=== PATIENT | female | born 1990 | race Two or more races ===

== ENCOUNTER 2017-10-31 09:44 | Emergency (ER) | payer OTHER ==
[2017-10-31 09:58] VITALS: BMI 28.3
--- NOTE | 2017-10-31 11:27 | HP ---
Past Medical History - Primary Care Physician PCP:: Bill Gonzalez - Admission Chief Complaint: 27yo P1 with at EGA 19 1/7 weeks with c/o cramping x 4 days and vaginal spotting x 2 days. History of Present Illness: No LOF, no pain, no fever, no chills, no or GI issues, no recent trauma or intercourse, denies drug use. 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: Alzheimer's, CVA, Dementia, Migraine, Multiple Sclerosis, Peripheral Neuropathy, Parkinson's, Seizure, Syncope, TIA, Vertigo, Other Cardiovascular: No: AFIB, Aneurysm, Aortic Insufficiency, Aortic Stenosis, CAD, CHF, Deep Vein Thrombosis, HTN, Hyperlipdemia, LA, Mitral Insufficiency, Mitral Stenosis, Murmur, Pulmonary Hypertension, Other Pulmonary: No: Asthma, Bronchitis, Cancer, COPD, O2 Dependent, Pneumonia, Previously Intubated, Pulmonary Embolus, Pulmonary Fibrosis, Sleep Apnea, Other Gastrointestinal: No: Ascites, Cancer, Constipation, Crohn's Disease, Diverticulitis, Diverticulosis, Esophageal Varices, Gastritis, GERD, GI Bleed, Hemorrhoids, Hiatal Hernia, Inflamatory Bowel Disease, Irritable Bowel Disease, Pancreatitis, Peptic Ulcer Disease, Ulcerative Colitis, Other Hepatobiliary: No: Cirrhosis, Cholelithiasis, Cholecystitis, Choledocholithiasis , Hepatitis A, Hepatitis B, Hepatitis C, Other Renal/: No: Renal Failure, Renal Inusuff, BPH, Cancer, Hematuria, Hemodialysis , Neurogenic Bladder, Renal Calculi, UTI, Other Reproductive: No: Ectopic , Endometriosis, Fibroids, PID, Polycystic Ovary Syndrome, Postmenopausal, Other ...: 3 ...Para: 1 ...Term: 1 ...Induced : 1 ... Weeks Gestation by Dates: ...EDC by Sono: 03/22/18 Heme/Onc: No: Anemia, B12 Deficiency, Bleeding Disorder, Cancer, Current Chemotherapy, Current Radiation Therapy, Hemochromatosis, Hypercoaguable State, Myeloproliferative Synd, Sickle Cell Disease, Sickle Cell Trait, Thrombocytopenia, Other Infectious Disease: No: AIDS, C-Diff, Herpes Zoster, HIV, MRSA, STD's, Tuberculosis, VREF, Other Musculoskeletal: No: Bursitis, Chronic low back pain, Hemiparesis, Hemiplegia, Osteoarthritis, Paraplegia, Other Rheumatology: No: Fibromyalgia, Gout, Lupus, Rheumatoid Arthritis, Sarcoidosis, Vasculitis, Other ENT: No: Allergic Rhinitis, Sinusitis, Other Endocrine: No: [place]'s Disease, Jigna's Disease, Diabetes Insipidus, Diabetes Mellitus, Hyperparathyroidism, Hyperthyroidism, Hypothyroidism, Osteopenia, SIADH, Other Dermatology: Yes: Eczema - Past Surgical History Past Surgical History: Yes: Cholecystectomy Hx Myomectomy: No Hx Transabdominal Cerclage: No Additional Surgical History: Meniscus repair - Smoking History Smoking history: Former smoker Have you smoked in the past 12 months: No Aproximately how many cigarettes per day: 2 - Alcohol/Substance Use Hx Alcohol Use: Yes (SOCIAL) History of Substance Use: reports: None - Social History Usual Living Arrangement: Yes: With Child ADL: Independent 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 History of Recent Travel: No Home Medications - Allergies Allergies/Adverse Reactions: Allergies Allergy/AdvReac Type Severity Reaction Status Date / Time No Known Allergies Allergy Verified 10/31/17 11:06 - Home Medications Home Medications: Ambulatory Orders Vit/Iron Fumarate/FA [ Tablet] 1 tab PO DAILY 10/31/17 Family Disease History - Family Disease History Family Disease History: Diabetes: Father, Respiratory: Mother (COPD) Review of Systems - Review of Systems Constitutional: reports: No Symptoms Eyes: reports: No Symptoms HENT: reports: No Symptoms Neck: reports: No Symptoms Cardiovascular: reports: No Symptoms Respiratory: reports: No Symptoms Gastrointestinal: reports: No Symptoms Genitourinary: reports: No Symptoms Breasts: reports: No Symptoms Reported Musculoskeletal: reports: No Symptoms Integumentary: reports: No Symptoms Neurological: reports: No Symptoms Endocrine: reports: No Symptoms Hematology/Lymphatic: reports: No Symptoms Psychiatric: reports: No Symptoms Pain Intensity: 0 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 - Maternity Vital Signs: Vital Signs Temperature 98.2 F 10/31/17 09:53 Pulse Rate 70 10/31/17 09:53 Respiratory Rate 19 10/31/17 09:53 Blood Pressure 113/49 10/31/17 09:53 O2 Sat by Pulse Oximetry (%) 99 10/31/17 09:53 Constitutional: Yes: Well Nourished, No Distress, Calm Eyes: Yes: WNL, Conjunctiva Clear HENT: Yes: WNL, Atraumatic, Normocephalic Neck: Yes: WNL, Supple, Trachea Midline Cardiovascular: Yes: WNL, Regular Rate and Rhythm Lungs: Clear to auscultation, Normal air movement - Abdominal Exam/OB Fundal Height: 19 Number of Fetuses: Single Heart Rate (range): 140 Heart Rate Location: Midline - Vaginal Exam/OB Vaginal Bleediing: Yes, Old Blood (No active bleeding, trace of old/brown blood , no abnormal discharge, no pooling) Speculum Exam: Yes Dilatation (cm): 0 Effacement (%): 0 Amniotic Membrane Status: Intact Nitrazine Test: Negative - 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 Musculoskeletal: Yes: WNL Extremities: Yes: WNL Edema: No Integumentary: Yes: WNL Deep Tendon Reflex Grade: Normal +2 ...Motor Strength: WNL Psychiatric: Yes: WNL, Alert, Oriented Hemorrhage Risk Assessment - Risk Factors Medium Risk Factors: Yes: None High Risk Factors: Yes: None Risk Score: 1 Risk Level: Medium Risk Assessment/Plan 27yo P1 with at EGA 19w1d presents for evaluation of threatened Ab. Pt w/o active bleeding. The rest of exam is normal. Plan: labs OB and transvaginal OB sono
[2017-10-31 11:50] LABS: BASOPHIL 0.5 % (0-2.0); MCH 30.2 pg (25.7-33.7); MEAN CELL VOLUME 88.8 fl (80-96); MEAN PLT VOLUME 8.2 fl (7.5-11.1); NEUTROPHILS 74.2 % (42.8-82.8); PLATELET COUNT 271 K/MM3 (134-434); RDW 12.8 % (11.6-15.6)
[2017-10-31 12:05] VITALS: BP 109/51; PULSE 68; TEMP 98
[2017-10-31 12:07] LABS: INR 0.96 (0.82-1.09); PROTHROMBIN TIME (PATIENT) 10.8 SEC (9.98-11.88)
[2017-10-31 12:15] LABS: ALBUMIN 2.7 g/dl (3.4-5.0); ANION GAP 7 (8-16); CALCIUM 8.9 mg/dL (8.5-10.1); CO2 27 mmol/L (21-32); CREATININE 0.3 mg/dL (0.55-1.02); GLUCOSE,RANDOM 82 mg/dL (74-106); SGOT/AST 20 U/L (15-37); SGPT/ALT 25 U/L (12-78)
[2017-10-31 12:17] LABS: ALK PHOS 74 U/L (45-117); BILIRUBIN,TOTAL 0.3 mg/dL (0.2-1.0); TOT PROT 5.9 g/dl (6.4-8.2)
== END 2017-10-31 13:05 | disposition home or self-care (01) ==
LOC: JER 09:44
DX: O26.892 Other specified pregnancy related conditions, second trimester (principal); O20.0 Threatened abortion; Z3A.19 19 weeks gestation of pregnancy
CPT/HCPCS: 36415; 80053; 85025; 85610; 85730; 86850; 86900; 86901; 99281-25

== ENCOUNTER 2018-03-01 21:45 | Inpatient (IN) | payer OTHER ==
[2018-03-01] MEDS ORDERED: ceFAZolin SODIUM 1 GM VIAL ONE (22:05)
[2018-03-01] MEDS ORDERED: morphine SULFATE/Preservative Free 0.5 MG/ML (1cc Syringe) ONE (22:05)
[2018-03-01] MEDS ORDERED: SUCCINYLCHOLINE CHLORIDE 200 MG/10 ML VIAL ONE (22:06)
[2018-03-01] MEDS ORDERED: BUPIVACAINE 0.75% IN DEXTROSE/PF 2ML AMPULE NR ONE (22:07)
[2018-03-01] MEDS ORDERED: METOCLOPRAMIDE HCL INJECTION 10 MG/2 ML VIAL ONE (22:15)
[2018-03-01 22:19] LABS: BASO % 0.4 % (0-2.0); EOS % 0.6 % (0-4.5); MCH 29.5 pg (25.7-33.7); MCHC 33.5 g/dl (32.0-36.0); MEAN CELL VOLUME 88.3 fl (80-96); MEAN PLT VOLUME 9.3 fl (7.5-11.1); MONO % 5.9 % (3.8-10.2); NEUT % 77.1 % (42.8-82.8); PLATELET COUNT 293 K/MM3 (134-434); RBC 3.74 M/mm3 (3.60-5.2); RDW 13.9 % (11.6-15.6); WHITE BLOOD COUNT 13.4 K/mm3 (4.0-10.0)
--- NOTE | 2018-03-01 22:21 | HP ---
Past Medical History - Admission History of Present Illness: 27 yo @ 36 3/7 wk by 9 wk ultrasound, EDC 03/26/2018 complicated by: 1. Posterior marginal placenta previa - most recent ultrasound 02/16/2018 (34 wks ) Placenta 1.3 cm from cervical os EFW 2352 32% 2. infant, dated by 9 wk ultrasound 3. GBS unknown Patient reports with chief complaint of bleeding and subsequent leakage of bloody fluid at approximately 2130. She reports contractions and reports movement. History Source: Patient - Past Medical History Cardiovascular: No: HTN Gastrointestinal: No: Ascites ...: 3 ...Para: 1 ...Term: 1 ...EDC by Sono: 03/16/18 Heme/Onc: No: Anemia Dermatology: Yes: Eczema - Past Surgical History Past Surgical History: Yes: Cholecystectomy Hx Myomectomy: No Hx Transabdominal Cerclage: No Additional Surgical History: Meniscus repair - Smoking History Smoking history: Former smoker Have you smoked in the past 12 months: No Aproximately how many cigarettes per day: 2 - Alcohol/Substance Use Hx Alcohol Use: Yes (SOCIAL) History of Substance Use: reports: None - Social History ADL: Independent 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 History of Recent Travel: No Home Medications - Allergies Allergies/Adverse Reactions: Allergies Allergy/AdvReac Type Severity Reaction Status Date / Time No Known Allergies Allergy Verified 10/31/17 11:06 - Home Medications Home Medications: Ambulatory Orders Vit/Iron Fum/Folic AC [ Tablet] 1 tab PO DAILY 10/31/17 Family Disease History - Family Disease History Family Disease History: Diabetes: Father, Respiratory: Mother (COPD) Review of Systems - Review of Systems Constitutional: reports: No Symptoms Neck: reports: No Symptoms Cardiovascular: reports: No Symptoms Respiratory: reports: No Symptoms Gastrointestinal: reports: No Symptoms Genitourinary: reports: No Symptoms Musculoskeletal: reports: No Symptoms Integumentary: reports: No Symptoms Neurological: reports: No Symptoms Endocrine: reports: No Symptoms Hematology/Lymphatic: reports: No Symptoms Psychiatric: reports: No Symptoms 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 - Maternity Constitutional: Yes: Well Nourished, No Distress, Calm Neck: Yes: Supple Cardiovascular: Yes: Regular Rate and Rhythm Lungs: Clear to auscultation - Abdominal Exam/OB Number of Fetuses: Single Presentation: Vertex Contractions: Yes Heart Rate (range): 130 Category: I Accelerations: Non-Uniform Decelerations: None - Vaginal Exam/OB Dilatation (cm): 2 Effacement (%): 50 Amniotic Membrane Status: Ruptured Station: -3 - 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 Psychiatric: Yes: Alert, Oriented - Labs Lab Results: PNL: A positive, antibody negative; RPR NR; HBSag negative; Hep C negative; Rubella immune; HIV negative; Parvo non immune; Varicella immune; CF/SMA/ Fragile X neg; GBS unknown; reassuring sequential screen; GCT WNL Hemorrhage Risk Assessment - Risk Factors Medium Risk Factors: Yes: None High Risk Factors: Yes: None Risk Score: 1 Risk Level: Medium Risk Assessment/Plan 27 yo @ 36 3/7 wks, PROM, marginal placenta previa 1. Admit to L&D, routine labs collected and sent 2. Consents reviewed and signed. Discussed recent ultrasound finding of marginal placenta previa, placental edge 1.3 cm. Discussed that placental edge is > 1 cm from cervical edge, patient may labor and monitor for bleeding. Discussed risk of delivery including but not limited to infection, bleeding, damage to surrounding organs such as bowel and bladder, small risk if injury to . Reviewed planning of future pregnancies, risks of abnormal placentation. Patient adamant that she does not want to labor and desires delivery. 3. Category I FHT 4. Unknown GBS 5. Will proceed to OR
[2018-03-01] MEDS ORDERED: OXYTOCIN 20 UNITS in 0.9% NS 20 UNIT/1,000 ML INFUS.BAG IV ONE (22:25)
[2018-03-01] MEDS ORDERED: ePHEDrine SULFATE 50 MG/1 ML AMPULE ONE (22:29)
[2018-03-01 22:36] VITALS: BMI 34.2
[2018-03-01] MEDS ORDERED: ELECTROLYTE-148 SOLN 500 ML IV ONE (22:45)
[2018-03-01] MEDS ORDERED: ELECTROLYTE-148 SOLN 1,000 ML IV SCH (22:45)
[2018-03-01 22:46] LABS: ANION GAP 10 (8-16); BLOOD UREA NITROGEN 11 mg/dL (7-18); CHLORIDE 104 mmol/L (98-107); CO2 23 mmol/L (21-32); CREATININE 0.3 mg/dL (0.55-1.02); GLUCOSE,RANDOM 81 mg/dL (74-106); POTASSIUM 4.3 mmol/L (3.5-5.1); SODIUM 137 mmol/L (136-145)
[2018-03-01 23:00] LABS: ACTIVATED PTT 25.3 SECONDS (26.9-34.4); INR 0.89 (0.82-1.09); PROTHROMBIN TIME (PATIENT) 10.1 SEC (9.98-11.88)
[2018-03-01] MEDS ORDERED: CITRIC ACID/SODIUM CITRATE 30 ML UNIT-DOSE CUP PO ONE (23:00)
[2018-03-01] MEDS: OXYTOCIN 20 UNITS in 0.9% NS 20 UNIT/1,000 ML INFUS.BAG IV SCH (23:10)
[2018-03-01 23:42] LABS: ARTERIAL BLOOD GAS PCO2 59.6 mmHg (35-45); ARTERIAL BLOOD GAS pH 7.28 (7.35-7.45)
[2018-03-01 23:43] LABS: ARTERIAL BLOOD GAS BASE EXCESS -0.5 meq/l (-2-2)
[2018-03-01 23:45] LABS: ARTERIAL BLD GAS O2 SATURATION 23.5 % (90-98.9); ARTERIAL BLOOD GAS PO2 14.7 mmHg (80-100)
[2018-03-01 23:46] LABS: VENOUS PC02 51.5 mmHg (38-52); VENOUS PH 7.32 (7.32-7.42); VENOUS PO2 21.6 mmHg (28-48)
[2018-03-01] MEDS ORDERED: ONDANSETRON 4 MG/2 ML VIAL IVPUSH PRN (23:53)
[2018-03-01] MEDS ORDERED: morphine SULFATE/Preservative Free 0.5 MG/ML (1cc Syringe) SPIN ONE (23:53)
--- NOTE | 2018-03-01 23:56 | PN ---
Delivery - Delivery Section: Primary Type of Anesthesia: Spinal EBL (cc): 600 Delivery, Single - Condition of Gender: Male Weight: 5 lb 11 oz Position: Right, OT - 1 Minute Total Score: 9 5 Minutes Total Score: 9 - Feeding Plan Initial Plan: Elected not to breastfeed exclusively throughout hospitalization Remarks - Remarks Remarks: Findings: Male infant; ROT position; 9,9; wt 5-11; 18.25 inches; normal tubes and ovaries bilaterally Surgeon: Reji Assist: BEBE Vega Anesthesia: Spinal, Dr. Villatoro Dictation: [id number]
[2018-03-01] MEDS ORDERED: WITCH HAZEL 50% (TUCKS) 40 PAD/JAR PAD TP PRN (23:59)
[2018-03-01] MEDS ORDERED: BENZOCAINE 28 GM HEMORRHOIDAL OINTMENT TP PRN (23:59)
[2018-03-01] MEDS ORDERED: METHYLERGONOVINE MALEATE 0.2 MG/1 ML AMP IM PRN (23:59)
[2018-03-01] MEDS ORDERED: BENZOCAINE 20% 57 GM BOTTLE TP PRN (23:59)
[2018-03-02] MEDS: OXYTOCIN 20 UNITS in 0.9% NS 20 UNIT/1,000 ML INFUS.BAG IV SCH ×2 (01:07→10:10)
[2018-03-02] MEDS ORDERED: OXYTOCIN 20 UNITS in 0.9% NS 20 UNIT/1,000 ML INFUS.BAG IV ONE (01:10)
[2018-03-02] MEDS ORDERED: METOCLOPRAMIDE HCL INJECTION 10 MG/2 ML VIAL IVPUSH ONE (01:10)
[2018-03-02] MEDS: IBUPROFEN 800 MG/8 ML IJ IVPB PRN ×2 (01:50→14:03)
--- NOTE | 2018-03-02 06:44 | OP ---
DATE OF OPERATION: 03/01/2018 PREOPERATIVE DIAGNOSIS: Intrauterine 36.3 weeks, marginal placental previa, bleeding. POSTOPERATIVE DIAGNOSIS: Intrauterine 36.3 weeks, marginal placental previa, bleeding. SURGEON: Dasha Mendoza MD HARDWOOD FALLER: BEBE Vega ANESTHESIA: Spinal with Dr. Villatoro. FINDINGS: Male infant in ROT position; Apgars 9, 9; weight 5 pounds, 11 ounces, 18.25 inches, normal tubes and ovaries bilaterally. INDICATIONS: Patient is a 27-year-old 3, para 1 with a history of marginal placenta previa who was found to have pre-term premature rupture of membranes, bleeding at home, and found to have blood-tinged fluid upon delivery and yahir. She opted for surgical delivery, declined offer for vaginal delivery. She was counseled regarding risk, benefits, alternatives, and complications of procedure including infection, bleeding requiring transfusion, damage to underlying organs such as bowel, bladder, ureters and injury to infant. She expressed understanding and was brought to the operating room. DESCRIPTION OF PROCEDURE: When anesthesia was found to be adequate, patient was prepped and draped in normal sterile fashion, placed in dorsal supine position with a leftward tilt. An approximately 11-cm skin incision was made with the knife and carried to the underlying rectus muscle using the Bovie electrocautery. The fascia was nicked in the midline, extended laterally using the Christian scissors. Attention was brought to the inferior portion, which was all tented up using Carmen clamps and dissected off the underlying rectus muscles using the Christian scissors. Attention was brought to the superior portion, where in similar fashion, it was tented up using Carmen clamps, and dissected off the underlying rectus muscles using the Christian scissors. The rectus muscles were in the midline bluntly, and the peritoneum was entered sharply. The vesicouterine peritoneum was identified, entered sharply, and the bladder flap was created digitally. Hysterotomy was performed and extended laterally using the bandaged scissors. Infants head was brought to the hysterotomy site and delivered followed by shoulders and body. Nuchal cord noted x1 and reduced. Infant was delivered. Mouth and nose were bulb suctioned. Blood and cord gases were collected and sent. Infant was handed off to awaiting NICU staff. The Placenta was manually extracted. The uterus was cleared of all clot and debris. The uterus was closed using 0 Biosyn in a running layer, 2nd layer was an imbricating layer. The vesicouterine peritoneum was reapproximated using 0 Biosyn in a running fashion. Gutters were cleared of all clot and debris. Bilateral tubes and ovaries were noted to be normal appearing. Peritoneum was closed using 2-0 Biosyn in a running fashion. The fascia was closed using 0 Vicryl in a running fashion. Subcutaneous fat was closed using 0 Vicryl in a running fashion. Skin was reapproximated using 3-0 Vicryl. The patient tolerated the procedure well. Estimated blood loss was 600 mL. Patient was brought to the recovery room in stable condition. Js [id number] MTDD
--- NOTE | 2018-03-02 08:05 | PN ---
Post Progress Note - Subjective Subjective: Patient without acute complaints. Tolerating clears, without nausea or vomiting No voiding, abraham in place draining clear fluid No ambulation or flatus yet. Denies fevers or chills. Pain well controlled. Post Day: 1 Type of Delivery: Primary C/S Vital Signs: Vital Signs Temperature 98.4 F 03/02/18 06:00 Pulse Rate 71 03/02/18 06:00 Respiratory Rate 18 03/02/18 07:00 Blood Pressure 135/73 03/02/18 06:00 O2 Sat by Pulse Oximetry (%) 100 03/02/18 01:00 Breast Exam: Yes: Soft Uterus: Yes: Fundus Firm Incision: Yes: Dressing dry and intact Abdomen/GI: Yes: Abdomen soft, Abdominal Distention (mild soft), Passing flatus , Tolerating PO. No: Tender Lochia: Yes: Serosa Lochia, amount: Moderate Extremities: Yes: Edema (trace) Perineum: Yes: Intact - Labs Labs: CBC WBC 13.4 K/mm3 (4.0-10.0) H 03/01/18 22:05 RBC 3.74 M/mm3 (3.60-5.2) 03/01/18 22:05 Hgb 11.0 GM/dL (10.7-15.3) 03/01/18 22:05 Hct 33.0 % (32.4-45.2) 03/01/18 22:05 MCV 88.3 fl (80-96) 03/01/18 22:05 MCH 29.5 pg (25.7-33.7) 03/01/18 22:05 MCHC 33.5 g/dl (32.0-36.0) 03/01/18 22:05 RDW 13.9 % (11.6-15.6) 03/01/18 22:05 Plt Count 293 K/MM3 (134-434) 03/01/18 22:05 MPV 9.3 fl (7.5-11.1) D 03/01/18 22:05 Neutrophils % 77.1 % (42.8-82.8) 03/01/18 22:05 Lymphocytes % 16.0 % (8-40) 03/01/18 22:05 Monocytes % 5.9 % (3.8-10.2) 03/01/18 22:05 Eosinophils % 0.6 % (0-4.5) 03/01/18 22:05 Basophils % 0.4 % (0-2.0) 03/01/18 22:05 Assessment/Plan 27 yo POD # 1 s/p primary CD at 36+ wks for previa, bleeding, PPROM, afebrile, vital signs stable doing well 1. Continue routine postoperative care. 2. Follow up AM CBC 3. Rh positive status, no rhogam indicated. 4. Encourage ambulation and incentive spirometer use 5. Continue oral pain medication 6. Anticipate discharge home postoperative day #3 or #4
[2018-03-02 08:42] LABS: BASO % 0.4 % (0-2.0); EOS % 0.8 % (0-4.5); HEMATOCRIT 30.5 % (32.4-45.2); HEMOGLOBIN 10.1 GM/dL (10.7-15.3); LYMPH % 17.1 % (8-40); MCH 29.5 pg (25.7-33.7); MCHC 33.1 g/dl (32.0-36.0); MEAN PLT VOLUME 8.7 fl (7.5-11.1); NEUT % 76.7 % (42.8-82.8); PLATELET COUNT 243 K/MM3 (134-434); RBC 3.42 M/mm3 (3.60-5.2); RDW 14.2 % (11.6-15.6); WHITE BLOOD COUNT 12.5 K/mm3 (4.0-10.0)
[2018-03-02] MEDS ORDERED: TUBERCULIN PPD 5 TU/0.1ML SYRINGE (IN PATIENT USE ONLY) ID ONE (09:00)
--- NOTE | 2018-03-02 09:00 | PN ---
Progress Note, Physician Chief Complaint: POD #1 s/p csection - Current Medication List Current Medications: Active Medications Benzocaine (Americaine 20% Junior -) 1 spray TP PRN PRN PRN Reason: Pain - Topical Benzocaine (Americaine Ointment -) 1 applic TP PRN PRN PRN Reason: Pain - Topical Bisacodyl (Dulcolax Suppository -) 10 mg RC PRN PRN PRN Reason: CONSTIPATION Diphenhydramine HCl (Benadryl Injection -) 25 mg IVPUSH Q4H PRN PRN Reason: Pruritis Enoxaparin Sodium (Lovenox -) 40 mg SQ DAILY [facility] Parenteral Electrolytes (Plasma-Lyte 148 -) 1,000 mls @ 125 mls/hr IV ASDIR [facility] Oxytocin/Sodium Chloride (Normal Saline+20 Units Oxytocin -) 20 unit in 1,000 mls @ 125 mls/hr IV ASDIR [facility] Last Admin: 03/02/18 01:07 Dose: 125 mls/hr Ibuprofen (Motrin -) 600 mg PO Q4H PRN PRN Reason: PAIN LEVEL 1 - 3 Ibuprofen (Caldolor Injection -) 800 mg IVPB Q8H PRN PRN Reason: PAIN LEVEL 4 - 6 Last Admin: 03/02/18 01:50 Dose: 800 mg Methylergonovine Maleate (Methergine Injection -) 0.2 mg IM Q4H PRN PRN Reason: Excessive Bleeding (L&D) Ondansetron HCl (Zofran Injection) 4 mg IVPUSH Q4H PRN PRN Reason: NAUSEA Oxycodone HCl (Roxicodone -) 5 mg PO Q4H PRN PRN Reason: PAIN LEVEL 4 - 6 Oxycodone HCl (Roxicodone -) 10 mg PO Q4H PRN PRN Reason: PAIN LEVEL 7 - 10 Multivit/Folic Acid/Iron ( Vitamins (Sjr) -) 1 tab PO DAILY [facility] Simethicone (Mylicon -) 80 mg PO Q4H PRN PRN Reason: GAS Tuberculin PPD (Tubersol Intermediate Strength) 5 tu ID ONCE ONE Stop: 03/02/18 09:01 Witch Renetta/Glycerin (Tucks Pads -) 1 pad TP PRN PRN PRN Reason: Pain - Topical - Objective Vital Signs: Vital Signs Temperature 98.3 F 03/02/18 08:50 Pulse Rate 75 03/02/18 08:50 Respiratory Rate 20 03/02/18 08:50 Blood Pressure 124/69 03/02/18 08:50 O2 Sat by Pulse Oximetry (%) 100 03/02/18 01:00 Labs: CBC, BMP 03/02/18 07:45 03/01/18 22:05 INR, PTT INR 0.89 (0.82-1.09) 03/01/18 21:59 Assessment/Plan Doing well after spinal with duramorph, though with complaints of itchiness. She does have dephenhydramine prn ordered, so advised pt to request it should she need it. OTherwise doing well, no anesthetic issues
[2018-03-02] MEDS: ENOXAPARIN NA (PORCINE) 40 MG/0.4 ML DISP.SYRIN SQ SCH (10:01)
[2018-03-02] MEDS: PRENATAL VITAMINS W/ FOLIC ACID TABLET (FP) PO SCH (11:42)
--- NOTE | 2018-03-02 17:48 | CONSULT ---
Consultation: REQUESTING PROVIDER: CONSULT REQUEST: We have been asked to medically evaluate this patient for Lice. HISTORY OF PRESENT ILLNESS: The patient is a 27 yo f w/ PMH eczema who is POD #1 for C section. Per the patient, she has a daughter at home who is currently being treated for recurrent lice. Was called to evaluate the patient for head lice prior to her visiting her in the nursery. The patient has no complaints. Patient denies itching of the scalp or arms. REVIEW OF SYSTEMS: CONSTITUTIONAL: Absent: fever, chills, diaphoresis, generalized weakness, malaise, loss of appetite, weight change HEENT: Absent: rhinorrhea, nasal congestion, throat pain, throat swelling, difficulty swallowing, mouth swelling, ear pain, eye pain, visual changes CARDIOVASCULAR: Absent: chest pain, syncope, palpitations, irregular heart rate, lightheadedness , peripheral edema RESPIRATORY: Absent: cough, shortness of breath, dyspnea with exertion, orthopnea, wheezing, stridor, hemoptysis GASTROINTESTINAL: Absent: abdominal distension, nausea, vomiting, diarrhea, constipation, melena, hematochezia GENITOURINARY: Absent: dysuria, frequency, urgency, hesitancy, hematuria, flank pain, genital pain MUSCULOSKELETAL: Absent: myalgia, arthralgia, joint swelling, back pain, neck pain SKIN: Absent: rash, itching, pallor HEMATOLOGIC/IMMUNOLOGIC: Absent: easy bleeding, easy bruising, lymphadenopathy, frequent infections ENDOCRINE: Absent: unexplained weight gain, unexplained weight loss, heat intolerance, cold intolerance NEUROLOGIC: Absent: headache, focal weakness or paresthesias, dizziness, unsteady gait, seizure, mental status changes, bladder or bowel incontinence PSYCHIATRIC: Absent: anxiety, depression, suicidal or homicidal ideation, hallucinations. PHYSICAL EXAMINATION Vital Signs - 24 hr 03/01/18 03/01/18 03/02/18 21:58 23:59 00:15 Temperature 99.0 F 97.4 F L Pulse Rate 77 62 75 Respiratory 20 20 18 Rate Blood Pressure 153/89 105/61 125/72 O2 Sat by Pulse 98 100 Oximetry (%) 03/02/18 03/02/18 03/02/18 00:30 00:45 01:00 Temperature 97.5 F L Pulse Rate 72 72 71 Respiratory 20 18 20 Rate Blood Pressure 122/71 126/80 127/78 O2 Sat by Pulse 100 100 100 Oximetry (%) 03/02/18 03/02/18 03/02/18 01:55 02:00 03:00 Temperature 97.6 F Pulse Rate 64 Respiratory 18 18 18 Rate Blood Pressure 138/81 O2 Sat by Pulse Oximetry (%) 03/02/18 03/02/18 03/02/18 04:00 05:00 06:00 Temperature 98.4 F Pulse Rate 71 Respiratory 18 18 18 Rate Blood Pressure 135/73 O2 Sat by Pulse Oximetry (%) 03/02/18 03/02/18 03/02/18 07:00 08:00 08:50 Temperature 98.3 F Pulse Rate 75 Respiratory 18 20 20 Rate Blood Pressure 124/69 O2 Sat by Pulse Oximetry (%) 03/02/18 03/02/18 03/02/18 09:00 10:05 11:00 Temperature Pulse Rate Respiratory 20 20 20 Rate Blood Pressure O2 Sat by Pulse 98 Oximetry (%) 03/02/18 03/02/18 03/02/18 12:00 13:00 14:00 Temperature 98.4 F Pulse Rate 75 Respiratory 20 20 20 Rate Blood Pressure 151/99 O2 Sat by Pulse Oximetry (%) 03/02/18 03/02/18 03/02/18 14:36 15:00 16:00 Temperature Pulse Rate Respiratory 20 20 Rate Blood Pressure 152/80 O2 Sat by Pulse Oximetry (%) GENERAL: Awake, alert, and fully oriented, in no acute distress. HEAD: Normal with no signs of trauma. no lice, nits, excoriations or eggs were seen over careful examination of the patient's entire scalp. NECK: Normal range of motion, supple without lymphadenopathy, JVD, or masses. LUNGS: Breath sounds equal, clear to auscultation bilaterally. No wheezes, and no crackles. No accessory muscle use. HEART: Regular rate and rhythm, normal S1 and S2 without murmur, rub or gallop. ABDOMEN: Soft, mild tenderness to palpation over surgical scar site, not distended, normoactive bowel sounds. LOWER EXTREMITIES: 2+ pulses, warm, well-perfused. No calf tenderness. No peripheral edema. NEUROLOGICAL: Cranial nerves II-X intact. Normal speech. PSYCHIATRIC: Cooperative. Good eye contact. Appropriate mood and affect. SKIN: Warm, dry, normal turgor, no rashes or lesions noted. Laboratory Results - last 24 hr 03/01/18 03/01/18 03/01/18 21:59 22:05 22:05 WBC 13.4 H RBC 3.74 Hgb 11.0 Hct 33.0 MCV 88.3 MCH 29.5 MCHC 33.5 RDW 13.9 Plt Count 293 MPV 9.3 D Neutrophils % 77.1 Lymphocytes % 16.0 Monocytes % 5.9 Eosinophils % 0.6 Basophils % 0.4 PT with INR 10.10 INR 0.89 PTT (Actin FS) 25.3 L ABG pH ABG pCO2 at Pt Temp ABG pO2 at Pt Temp ABG HCO3 ABG O2 Sat (Measured) ABG O2 Content ABG Base Excess VBG pH POC VBG pCO2 POC VBG pO2 Mixed VBG HCO3 Sodium 137 Potassium 4.3 Chloride 104 Carbon Dioxide 23 Anion Gap 10 BUN 11 Creatinine 0.3 L Random Glucose 81 Calcium 9.0 RPR Titer Blood Type Antibody Screen 03/01/18 03/01/18 03/01/18 22:05 22:05 23:18 WBC RBC Hgb Hct MCV MCH MCHC RDW Plt Count MPV Neutrophils % Lymphocytes % Monocytes % Eosinophils % Basophils % PT with INR INR PTT (Actin FS) ABG pH 7.28 L ABG pCO2 at Pt Temp 59.6 H ABG pO2 at Pt Temp 14.7 L* ABG HCO3 27.3 H ABG O2 Sat (Measured) 23.5 L* ABG O2 Content 4.9 L* ABG Base Excess -0.5 VBG pH POC VBG pCO2 POC VBG pO2 Mixed VBG HCO3 Sodium Potassium Chloride Carbon Dioxide Anion Gap BUN Creatinine Random Glucose Calcium RPR Titer Nonreactive Blood Type A POSITIVE Antibody Screen Negative 03/01/18 03/02/18 23:18 07:45 WBC 12.5 H RBC 3.42 L Hgb 10.1 L Hct 30.5 L MCV 89.0 MCH 29.5 MCHC 33.1 RDW 14.2 Plt Count 243 MPV 8.7 Neutrophils % 76.7 Lymphocytes % 17.1 Monocytes % 5.0 Eosinophils % 0.8 Basophils % 0.4 PT with INR INR PTT (Actin FS) ABG pH ABG pCO2 at Pt Temp ABG pO2 at Pt Temp ABG HCO3 ABG O2 Sat (Measured) ABG O2 Content ABG Base Excess VBG pH 7.32 POC VBG pCO2 51.5 POC VBG pO2 21.6 L Mixed VBG HCO3 26.0 H Sodium Potassium Chloride Carbon Dioxide Anion Gap BUN Creatinine Random Glucose Calcium RPR Titer Blood Type Antibody Screen Active Medications Generic Name Dose Route Start Last Admin Trade Name Freq PRN Reason Stop Dose Admin Benzocaine 1 spray 03/01/18 23:59 Americaine 20% [place] - TP PRN PRN Pain - Topical Benzocaine 1 applic 03/01/18 23:59 Americaine Ointment - TP PRN PRN Pain - Topical Bisacodyl 10 mg 03/02/18 23:59 Dulcolax Suppository - RC PRN PRN CONSTIPATION Diphenhydramine HCl 25 mg 03/01/18 23:53 Benadryl Injection - IVPUSH Q4H PRN Pruritis Enoxaparin Sodium 40 mg 03/02/18 10:00 03/02/18 10:01 Lovenox - SQ 40 mg DAILY ARACELI Administration Parenteral Electrolytes 1,000 mls @ 125 mls/hr 03/01/18 22:45 Plasma-Lyte 148 - IV ASDIR ARACELI Oxytocin/Sodium Chloride 20 unit in 1,000 mls @ 125 mls/hr 03/01/18 23:45 04/14 10:10 Normal Saline+20 Units Oxytocin - IV 125 mls/hr ASDIR ARACELI Administration Ibuprofen 600 mg 03/01/18 23:59 Motrin - PO Q4H PRN PAIN LEVEL 1 - 3 Ibuprofen 800 mg 03/01/18 23:59 03/02/18 14:03 Caldolor Injection - IVPB 800 mg Q8H PRN Administration PAIN LEVEL 4 - 6 Methylergonovine Maleate 0.2 mg 03/01/18 23:59 Methergine Injection - IM Q4H PRN Excessive Bleeding (L&D) Ondansetron HCl 4 mg 03/01/18 23:53 Zofran Injection IVPUSH Q4H PRN NAUSEA Oxycodone HCl 5 mg 03/01/18 23:59 Roxicodone - PO Q4H PRN PAIN LEVEL 4 - 6 Oxycodone HCl 10 mg 03/01/18 23:59 Roxicodone - PO Q4H PRN PAIN LEVEL 7 - 10 Multivit/Folic Acid/Iron 1 tab 03/02/18 10:00 03/02/18 11:42 Vitamins (Sjr) - PO Not Given DAILY ARACELI Simethicone 80 mg 03/01/18 23:59 Mylicon - PO Q4H PRN GAS Witch Renetta/Glycerin 1 pad 03/01/18 23:59 Tucks Pads - TP PRN PRN Pain - Topical ASSESSMENT/PLAN: 27 yo f w/ no PMH being evaluated for head lice #Possible head lice -no evidence of lice infection can be seen on the scalp -the patient is cleared to enter the nursery and participate in all motherly duties as usual #Dispo: -Will sign off at this time as no further medical management indicated. -Please re-consult as necessary. -Thank you for this consultative opportunity. Visit type - Emergency Visit Emergency Visit: No - New Patient This patient is new to me today: Yes Date on this admission: 03/02/18 - Critical Care Critical Care patient: No
--- NOTE | 2018-03-02 18:53 | PN ---
Teaching Attending Note Name of Resident: Yfn Macdonald ATTENDING PHYSICIAN STATEMENT I saw and evaluated the patient. I reviewed the resident's note and discussed the case with the resident. I agree with the resident's findings and plan as documented. SUBJECTIVE: This is a 27 year old woman with a history of eczema, s/p yesterday, whom we are asked to evaluate for head lice so that she can visit her in the nursery. Her daughter is home being treated for head lice. The patient has no complaints. OBJECTIVE: Vital Signs Period Temp Pulse Resp BP Sys/Curtis Pulse Ox Last 24 Hr 97.4 F-99.0 F 62-87 18-20 105-153/61-99 98-100 HEART: S1S2, RRR LUNGS: Clear ABDOMEN: Obese, soft, non-tender, non-distended, normal BS EXTREMITIES: No edema SCALP: Normal with no evidence of lice Laboratory Results - last 24 hr 03/01/18 03/01/18 03/01/18 21:59 22:05 22:05 WBC 13.4 H RBC 3.74 Hgb 11.0 Hct 33.0 MCV 88.3 MCH 29.5 MCHC 33.5 RDW 13.9 Plt Count 293 MPV 9.3 D Neutrophils % 77.1 Lymphocytes % 16.0 Monocytes % 5.9 Eosinophils % 0.6 Basophils % 0.4 PT with INR 10.10 INR 0.89 PTT (Actin FS) 25.3 L ABG pH ABG pCO2 at Pt Temp ABG pO2 at Pt Temp ABG HCO3 ABG O2 Sat (Measured) ABG O2 Content ABG Base Excess VBG pH POC VBG pCO2 POC VBG pO2 Mixed VBG HCO3 Sodium 137 Potassium 4.3 Chloride 104 Carbon Dioxide 23 Anion Gap 10 BUN 11 Creatinine 0.3 L Random Glucose 81 Calcium 9.0 RPR Titer Blood Type Antibody Screen 03/01/18 03/01/18 03/01/18 22:05 22:05 23:18 WBC RBC Hgb Hct MCV MCH MCHC RDW Plt Count MPV Neutrophils % Lymphocytes % Monocytes % Eosinophils % Basophils % PT with INR INR PTT (Actin FS) ABG pH 7.28 L ABG pCO2 at Pt Temp 59.6 H ABG pO2 at Pt Temp 14.7 L* ABG HCO3 27.3 H ABG O2 Sat (Measured) 23.5 L* ABG O2 Content 4.9 L* ABG Base Excess -0.5 VBG pH POC VBG pCO2 POC VBG pO2 Mixed VBG HCO3 Sodium Potassium Chloride Carbon Dioxide Anion Gap BUN Creatinine Random Glucose Calcium RPR Titer Nonreactive Blood Type A POSITIVE Antibody Screen Negative 03/01/18 03/02/18 23:18 07:45 WBC 12.5 H RBC 3.42 L Hgb 10.1 L Hct 30.5 L MCV 89.0 MCH 29.5 MCHC 33.1 RDW 14.2 Plt Count 243 MPV 8.7 Neutrophils % 76.7 Lymphocytes % 17.1 Monocytes % 5.0 Eosinophils % 0.8 Basophils % 0.4 PT with INR INR PTT (Actin FS) ABG pH ABG pCO2 at Pt Temp ABG pO2 at Pt Temp ABG HCO3 ABG O2 Sat (Measured) ABG O2 Content ABG Base Excess VBG pH 7.32 POC VBG pCO2 51.5 POC VBG pO2 21.6 L Mixed VBG HCO3 26.0 H Sodium Potassium Chloride Carbon Dioxide Anion Gap BUN Creatinine Random Glucose Calcium RPR Titer Blood Type Antibody Screen Current Medications Generic Name Dose Route Start Last Admin Trade Name Freq PRN Reason Stop Dose Admin Benzocaine 1 spray 03/01/18 23:59 Americaine 20% [place] - TP PRN PRN Pain - Topical Benzocaine 1 applic 03/01/18 23:59 Americaine Ointment - TP PRN PRN Pain - Topical Bisacodyl 10 mg 03/02/18 23:59 Dulcolax Suppository - RC PRN PRN CONSTIPATION Diphenhydramine HCl 25 mg 03/01/18 23:53 Benadryl Injection - IVPUSH Q4H PRN Pruritis Enoxaparin Sodium 40 mg 03/02/18 10:00 03/02/18 10:01 Lovenox - SQ 40 mg DAILY ARACELI Administration Parenteral Electrolytes 1,000 mls @ 125 mls/hr 03/01/18 22:45 Plasma-Lyte 148 - IV ASDIR ARACELI Oxytocin/Sodium Chloride 20 unit in 1,000 mls @ 125 mls/hr 03/01/18 23:45 04/14 10:10 Normal Saline+20 Units Oxytocin - IV 125 mls/hr ASDIR ARACELI Administration Ibuprofen 600 mg 03/01/18 23:59 Motrin - PO Q4H PRN PAIN LEVEL 1 - 3 Ibuprofen 800 mg 03/01/18 23:59 03/02/18 14:03 Caldolor Injection - IVPB 800 mg Q8H PRN Administration PAIN LEVEL 4 - 6 Methylergonovine Maleate 0.2 mg 03/01/18 23:59 Methergine Injection - IM Q4H PRN Excessive Bleeding (L&D) Ondansetron HCl 4 mg 03/01/18 23:53 Zofran Injection IVPUSH Q4H PRN NAUSEA Oxycodone HCl 5 mg 03/01/18 23:59 Roxicodone - PO Q4H PRN PAIN LEVEL 4 - 6 Oxycodone HCl 10 mg 03/01/18 23:59 Roxicodone - PO Q4H PRN PAIN LEVEL 7 - 10 Multivit/Folic Acid/Iron 1 tab 03/02/18 10:00 03/02/18 11:42 Vitamins (Sjr) - PO Not Given DAILY ARACELI Simethicone 80 mg 03/01/18 23:59 Mylicon - PO Q4H PRN GAS Witch Renetta/Glycerin 1 pad 03/01/18 23:59 Tucks Pads - TP PRN PRN Pain - Topical ASSESSMENT AND PLAN: This is a 27 year old woman with a history of eczema, s/p yesterday, whom we are asked to evaluate for head lice so that she can visit her in the nursery. There is no evidence of lice and the patient may visit the nursery.
[2018-03-02] MEDS: oxyCODONE HCL 5 MG TABLET PO PRN (23:27)
[2018-03-02] MEDS: SIMETHICONE 80 MG TAB.CHEW (FP) PO PRN (23:27)
[2018-03-02] MEDS: IBUPROFEN 600 MG TABLET (FP) PO PRN (23:27)
[2018-03-02] MEDS ORDERED: BISACODYL 10 MG SUPP.RECT RC PRN (23:59)
--- NOTE | 2018-03-03 07:21 | PN ---
Progress Note (short form) - Note Progress Note: pod 2 s/p primary c/s doing well, has mild incisional pain CBC, BMP 03/02/18 07:45 03/01/18 22:05 Last Vital Signs Temp Pulse Resp BP Pulse Ox 98.4 F 92 H 18 139/85 98 03/02/18 21:19 03/02/18 21:19 03/02/18 21:19 03/02/18 21:19 03/02/18 09:00 abdomen soft, no distension , no cva tenderness incision dry, clean no calf tenderness lochia mild plan pain mamngement, ambulate cbc in am
[2018-03-03] MEDS: IBUPROFEN 600 MG TABLET (FP) PO PRN ×2 (07:40→14:00)
[2018-03-03] MEDS: SIMETHICONE 80 MG TAB.CHEW (FP) PO PRN ×3 (07:40→20:21)
[2018-03-03] MEDS: oxyCODONE HCL 5 MG TABLET PO PRN ×3 (07:41→20:22)
[2018-03-03] MEDS: ENOXAPARIN NA (PORCINE) 40 MG/0.4 ML DISP.SYRIN SQ SCH (09:52)
[2018-03-03] MEDS: PRENATAL VITAMINS W/ FOLIC ACID TABLET (FP) PO SCH (09:52)
[2018-03-04] MEDS: IBUPROFEN 600 MG TABLET (FP) PO PRN ×2 (00:42→22:28)
[2018-03-04] MEDS: SIMETHICONE 80 MG TAB.CHEW (FP) PO PRN ×4 (00:42→22:29)
[2018-03-04 09:30] LABS: BASO % 0.2 % (0-2.0); EOS % 2.3 % (0-4.5); HEMATOCRIT 28.9 % (32.4-45.2); HEMOGLOBIN 9.8 GM/dL (10.7-15.3); LYMPH % 13.2 % (8-40); MCH 30.4 pg (25.7-33.7); MCHC 34.1 g/dl (32.0-36.0); MEAN CELL VOLUME 89.1 fl (80-96); MEAN PLT VOLUME 8.5 fl (7.5-11.1); MONO % 3.3 % (3.8-10.2); PLATELET COUNT 289 K/MM3 (134-434); RBC 3.24 M/mm3 (3.60-5.2); RDW 14.5 % (11.6-15.6); WHITE BLOOD COUNT 10.8 K/mm3 (4.0-10.0)
--- NOTE | 2018-03-04 10:04 | PN ---
Post Progress Note - Subjective Subjective: No complains Not breast feeding Post Day: 3 Type of Delivery: Repeat C/S Vital Signs: Vital Signs Temperature 98.6 F 03/03/18 22:00 Pulse Rate 94 H 03/03/18 22:00 Respiratory Rate 20 03/03/18 22:00 Blood Pressure 147/92 03/03/18 22:00 O2 Sat by Pulse Oximetry (%) 98 03/02/18 09:00 Breast Exam: Yes: Soft Uterus: Yes: Fundus Firm Incision: Yes: Sutures intact Abdomen/GI: Yes: Abdomen soft, Passing flatus, Tolerating PO Lochia, amount: Small Extremities: Yes: Calves non-tender Activity: Ambulating - Labs Labs: CBC WBC 10.8 K/mm3 (4.0-10.0) H 03/04/18 08:00 RBC 3.24 M/mm3 (3.60-5.2) L 03/04/18 08:00 Hgb 9.8 GM/dL (10.7-15.3) L 03/04/18 08:00 Hct 28.9 % (32.4-45.2) L 03/04/18 08:00 MCV 89.1 fl (80-96) 03/04/18 08:00 MCH 30.4 pg (25.7-33.7) 03/04/18 08:00 MCHC 34.1 g/dl (32.0-36.0) 03/04/18 08:00 RDW 14.5 % (11.6-15.6) 03/04/18 08:00 Plt Count 289 K/MM3 (134-434) 03/04/18 08:00 MPV 8.5 fl (7.5-11.1) 03/04/18 08:00 Neutrophils % 81.0 % (42.8-82.8) 03/04/18 08:00 Lymphocytes % 13.2 % (8-40) D 03/04/18 08:00 Monocytes % 3.3 % (3.8-10.2) L 03/04/18 08:00 Eosinophils % 2.3 % (0-4.5) D 03/04/18 08:00 Basophils % 0.2 % (0-2.0) 03/04/18 08:00 Assessment/Plan 27 yo P2 s/p Primary c/s for Marginal previa Afebrile, VSS Doing well Interested in Circumcision for the baby Encoraged to consider Cont. routine care Plan to d/c 03/05/18 D/c instructions given
--- NOTE | 2018-03-04 10:05 | DS ---
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 Vital Signs: Vital Signs Temperature 98.6 F 03/03/18 22:00 Pulse Rate 94 H 03/03/18 22:00 Respiratory Rate 20 03/03/18 22:00 Blood Pressure 147/92 03/03/18 22:00 O2 Sat by Pulse Oximetry (%) 98 03/02/18 09:00 Constitutional: Yes: Well Nourished Eyes: Yes: WNL HENT: Yes: WNL, Atraumatic, Normocephalic Neck: Yes: WNL, Supple Cardiovascular: Yes: WNL, Regular Rate and Rhythm Respiratory: Yes: WNL, Regular, CTA Bilaterally Gastrointestinal: Yes: WNL, Normal Bowel Sounds, Soft ...Rectal Exam: Yes: WNL Renal/: Yes: WNL Pelvis: Yes: WNL External Genitalia: Yes: Normal Vaginal Exam: Yes: Normal Cervix: Yes: Normal Uterus: Yes: Normal ....Post : Yes: Uterus firm, Uterus non-tender Breast(s): Yes: WNL Musculoskeletal: Yes: WNL Extremities: Yes: WNL Edema: No Integumentary: Yes: WNL Wound/Incision: Yes: Clean/Dry, Well Approximated Neurological: Yes: WNL, Alert, Oriented, Weakness Psychiatric: Yes: WNL, Alert, Oriented Labs: CBC, BMP 03/04/18 08:00 03/01/18 22:05 Delivery - Delivery Section: Primary Type of Anesthesia: Spinal Episiotomy/Laceration: None EBL (cc): 600 Delivery, Single - Stages of Labor Date of Delivery: 03/01/18 Time of Delivery: 23:09 Time Placenta Delivered: 23:10 - Condition of Corporate Securities Research Analyst/Nurse Informatics Educator Present: Yes Name: Umm Del Castillo Infant Gender: Male Weight: 5 lb 11 oz Position: Right, OT Total Hours ROM (Hrs/Mins): 1hr 40min - 1 Minute Total Score: 9 5 Minutes Total Score: 9 - [place] Feeding Plan Initial Plan: Elected not to breastfeed exclusively throughout hospitalization Discharge Summary Reason For Visit: LABOR Procedures: Principal: Repeat c/section Other Procedures: Male new born circumcision Hospital Course: Unremarkable Condition: Good - Instructions Diet, Activity, Other Instructions: Physical activity Resume your normal everyday activity as tolerated no heavy lifting or exercise until seen by your surgeon. You may walk unlimited sheila of and climb stairs. You may resume driving the car when you feel safe and comfortable behind the wheel. No sexual activity as instructed. Wound care If you have a bandage, leave it on, and keep dry for 48-72 hours. After that time discard the outer bandage. If they are tapes on the skin under the out of bandage leave them in place. They will peel off in the next 7 to 10 days. Do Not Peel them off. You may shower the day after surgery. If there are tapes present on the skin, you may shower over them. Diet There are no dietary restrictions. Eat healthy, high-fiber foods. Drink 6 to 8 glasses of liquid each day. This will assist in keeping your bowels are regular. Pain management You may take Tylenol or acetaminophen or Ibuprofen (for example, Motrin, Advil etc.) from my pain prescription medication is ordered should be taken as prescribed for moderate to severe pain. Call MD for any of the following: Severe pain not relieved by medication Fever of 101 or higher Excessive bleeding or drainage on dressing Inability to urinate Referrals: Bill Gonzalez MD [Staff Physician] - Disposition: HOME - Home Medications Comprehensive Discharge Medication List: Ambulatory Orders Vit/Iron Fum/Folic AC [ Tablet] 1 tab PO DAILY 10/31/17
[2018-03-04] MEDS: oxyCODONE HCL 5 MG TABLET PO PRN ×3 (10:25→22:29)
[2018-03-04] MEDS: ENOXAPARIN NA (PORCINE) 40 MG/0.4 ML DISP.SYRIN SQ SCH (10:27)
[2018-03-04] MEDS: PRENATAL VITAMINS W/ FOLIC ACID TABLET (FP) PO SCH (10:32)
[2018-03-04] MEDS ORDERED: SENNOSIDES/DOCUSATE COMBO (SENNA PLUS) TABLET (UD) PO PRN (22:37)
[2018-03-05] MEDS: SIMETHICONE 80 MG TAB.CHEW (FP) PO PRN (09:19)
[2018-03-05] MEDS: IBUPROFEN 600 MG TABLET (FP) PO PRN (09:19)
[2018-03-05] MEDS: PRENATAL VITAMINS W/ FOLIC ACID TABLET (FP) PO SCH (09:57)
[2018-03-05] MEDS: ENOXAPARIN NA (PORCINE) 40 MG/0.4 ML DISP.SYRIN SQ SCH (09:58)
[2018-03-05 16:20] VITALS: BP 121/72; PULSE 92; TEMP 98.7
--- NOTE | 2018-03-07 16:23 | PATH ---
Surgical Pathology Report Patient Name: LOW YEUNG Med. Rec. 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 Electronically Signed Janie Tapia M.D. Gross Description The specimen is received fresh labeled placenta and is a 401 gram, 16.5 x 15.5 x 2.8 cm. placenta with attached membranes and umbilical cord. The attached membranes are ramos, translucent with focal opacities and insert marginally. The umbilical cord measures 13 cm. in length and averages 1 cm. in diameter. The cord inserts eccentrically, 5 cm. to the nearest margin. No true knots or strictures are identified. Cut surface of the umbilical cord reveals 3 vessels. The surface is martinez-blue with minimal fibrin deposition and appropriate caliber vessels. The maternal surface is red-brown with focal defects. Sectioning reveals red-brown, spongy parenchyma. No lesions are identified. Power Switchboard Operator sections are submitted in three cassettes as follows: 1- membrane rolls and umbilical cord; 2-3- full thickness sections of placenta. /03/06/2018 saudi03/06/2018
== END 2018-03-05 16:00 | disposition home or self-care (01) | DRG 540 ==
LOC: JLDR 21:45 → J3W 03-02 01:44
PROVIDERS: ADMIT Obstetrics & Gynecology; ATTEND Obstetrics & Gynecology
PROC: 10D00Z1 Extraction of Products of Conception, Low, Open Approach (ICD-10-PCS; principal; 2018-03-01)
DX: O44.23 Partial placenta previa NOS or without hemorrhage, third trimester (principal); O42.913 Preterm premature rupture of membranes, unspecified as to length of time between rupture and onset of labor, third trimester; Z3A.36 36 weeks gestation of pregnancy; Z37.0 Single live birth
CPT/HCPCS: 36415; 36600; 80048; 82803; 85025; 85610; 85730; 86593; 86850; 86900; 86901; 88307-TC; 94010